=== PATIENT | male | born 1980 | race African-American/Black ===

== ENCOUNTER 2023-08-23 23:33 | Day surgery (SDC) | payer SELFPAY ==
--- NOTE | ~2023-08-23 | FL_ITS ---
EXAMINATION: XR FLUOROSCOPY WITH IMAGES CLINICAL INFORMATION: Right renal calculus. COMPARISON: None available. TECHNIQUE: Fluoroscopy Supervised By: Dr. Domingo Sheth. Fluoroscopy Time: 2.2 seconds. Cumulative Dose: 0.47 mGy. Images: 1. FINDINGS: Intraoperative fluoroscopy and spot films were performed during a procedure in the OR. Single image demonstrates a retrograde wire in the right ureter. Please see Dr. Domingo Sheth's report for complete details. FL/FL guidance in OR IMPRESSION: Intraoperative fluoroscopy and spot films were obtained. Please see Dr. Domingo Sheth's report for complete details.
--- NOTE | ~2023-08-23 | CT_ITS ---
EXAMINATION: CT ABDOMEN AND PELVIS WITHOUT CONTRAST CLINICAL INFORMATION: Right flank pain. COMPARISON: None available. TECHNIQUE: Multidetector volumetric imaging was performed from the superior aspect of the liver through the pubic symphysis. Sagittal and coronal reformatted images were obtained on the technologist's workstation. This CT examination was performed using dose optimization techniques as appropriate, variously including the following: *Automated exposure control *Adjustment of mA and/or kV according to patient size (this includes techniques or standardized protocols for targeted exams where dose is matched to indication/reason for exam; i.e. extremities or head) *Use of iterative reconstruction technique DLP: 637 mGy-cm FINDINGS: LUNG BASES: The visualized lung bases are unremarkable. LIVER, GALLBLADDER, AND BILIARY TREE: The liver is normal in size, shape, and attenuation. No focal hepatic lesion or biliary ductal dilatation is present. The gallbladder is unremarkable with no evidence of radiopaque gallstones, gallbladder wall thickening, or obvious pericholecystic inflammatory changes. PANCREAS: Unremarkable. SPLEEN: Unremarkable. ADRENAL GLANDS: Unremarkable. KIDNEYS AND URETERS: The kidneys are normal in size, shape, and attenuation. There is a 5 mm calculus mid to upper pole right kidney. There is a 1 mm calculus upper pole right kidney. There are a few small hypodensities mid and lower poles of the left kidney measuring up to 1.5 cm most consistent with cysts. There is mild right hydronephrosis and hydroureter extending into the pelvis with a 9 x 4.5 mm calculus projecting into the right aspect of the urinary bladder. BLADDER: Unremarkable. GASTROINTESTINAL TRACT: The small and large bowel are unremarkable. The appendix is not identified. ABDOMINAL WALL: No significant hernia is appreciated. LYMPH NODES: Normal. VASCULAR: There is mild atherosclerotic plaque of the abdominal aorta and iliac vessels.. PELVIC VISCERA: Unremarkable. OSSEOUS STRUCTURES: Unremarkable. CT/CT abdomen pelvis wo IV con IMPRESSION: Mild right hydronephrosis and hydroureter extending into the pelvis with a 9 x 4.5 mm calculus projecting into the right aspect of the urinary bladder likely at the right ureterovesicular junction. Right renal stones. Small left renal cysts. Fleischner guidelines were followed.
[2023-08-23 23:47] VITALS: BP 117/76; PULSE 77; RESP 16; TEMP 36.9; O2SAT 99; BMI 27.0
[2023-08-24] VITALS (10 sets, daily range): BP systolic 122–174; BP diastolic 80–110; PULSE 61–84; RESP 15–18; TEMP 36.3–36.6; O2SAT 97–99
--- NOTE | 2023-08-24 00:44 | ED.ABDPAIN ---
HPI - Abdominal Pain General Chief Complaint: Abdominal Pain Stated Complaint: Unable to urinate/bladder feels [facility] Seen by Provider: 08/24/23 00:34 Source: patient Mode of arrival: ambulatory Limitations: no limitations History of Present Illness HPI narrative: Patient comes to the emergency room complaining of right lower quadrant pain that started approximately 1 hour ago. Patient denies radiation, states it is constant, very painful, sharp. Patient denies any injuries. Patient has history of appendectomy. Denies history of kidney stones. Patient states that earlier today he was unsure if he could empty out his bladder, felt distended. However, patient was able to urinate normal. No hematuria or dysuria. Patient denies nausea vomiting or diarrhea, denies fever or chills. Related Data Allergies Allergy/AdvReac Type Severity Reaction Status Date / Time No Known Allergies Allergy Verified 08/23/23 23:52 Review of Systems Review of Systems Constitutional : No Weight loss, No Fever, No Chills, No Night Sweats, No Fatigue, No Malaise ENT/Mouth : No Hearing loss, No Ear Pain, No Nasal Congestion, No Sinus Pain, No Hoarseness, No sore throat, No Rhinorrhea, No Swallowing Difficulty Eyes: No Eye Pain, No Swelling, No Redness, No Foreign Body, No Discharge, No Vision Changes Cardiovascular : No Chest Pain, No SOB, No Dyspnea on Exertion, No Orthopnea, No Edema, No Palpitations Respiratory : No Cough, No Sputum, No Wheezing, No Smoke Exposure, No Dyspnea Gastrointestinal : No Nausea, No Vomiting, No Diarrhea, No Constipation, complaining of right lower quadrant pain Genitourinary : no irregular bleeding, No Dysuria, No Urinary Frequency, No Hematuria, No Urinary Incontinence, No Urgency, No Flank Pain, No Urinary Flow Changes, No Hesitancy Musculoskeletal : No joint pain, No Myalgias, No Joint Swelling Skin : No Skin Lesions, No rash Neuro : No Weakness, No Numbness, No Paresthesias, No Loss of Consciousness, No Dizziness, No Headache Psych : No Anxiety/Panic, No Depression, No SI/HI/AH/VH, No Social Issues, Heme/Lymph: No Bruising, No Bleeding,No Lymphadenopathy Endocrine : No Polyuria, No Polydipsia, No Temperature Intolerance PMF Past Medical History Surgical History (Updated 08/24/23 @ 00:45 by Lavern Loya MD) History of appendectomy Social History Social History Advance Directives: No Advance Directives Information Provided: Yes Do you have a plan to hurt others: No Plan Physical Exam ED Vital Signs: Vital Signs - 24 hr 08/23/23 23:47 08/24/23 02:48 08/24/23 04:48 Temperature 98.4 F 97.9 F Pulse Rate 77 84 81 Respiratory Rate 16 18 18 Blood Pressure 117/76 122/80 125/81 Pulse Oximetry 99 97 99 Oxygen Delivery Method Room Air Nasal Cannula Room Air BMI result Body Mass Index 27.0 Const Other: Appearance: Alert. Oriented X3. No acute distress. Eyes: Pupils equal, round and reactive to light. ENT: Pharynx normal. Neck: Normal inspection. Neck supple. No lymph nodes noted. No crepitus CVS: Normal heart rate and rhythm. Pulses normal. Normal S1 and S2 Respiratory: No respiratory distress. Breath sounds normal. No Wheezing. No rales Abdomen: Soft , moderate tenderness to palpation in the right lower quadrant, no flank pain, no periumbilical pain. No rebound, no guarding. Skin: Skin warm and dry. Normal skin color. Normal skin turgor. Extremities: No lower extremity edema. No Lacerations. No Rash Neuro: Oriented X 3. No motor deficit. No sensory deficit. Moving all extremities. No slurred speech. CN 2 through 12 grossly intact Psych: calm, cooperative, normal affect Course Course Course Narrative: -patient receiving ketorolac IV and Zofran -all of patient's labs pending -imaging pending Medical Decision Making Medical Decision Making MDM Narrative: My interpretation of CT scan, large right ureteral stone. -my interpretation of labs: White blood cell count 11.2, chemistry within normal limits, urinalysis positive for UTI. -patient given the 1st dose of levofloxacin in the emergency room. -discussed with the patient that this stone is so big that it is unlikely to pass by itself. Patient will follow-up with with Urology. -after medication, patient states that the pain decreased but still fairly uncomfortable. -CT scan shows a 9 mm x 4.5 mm stone in the right ureterovesicular junction -I discussed with the patient that the stone is too big, unlikely to pass by itself. Additionally, patient has a UTI. Pain is not well controlled. -I discussed the patient with Dr. Sheth Differential Diagnosis Differential Diagnoses: The differential diagnosis associated with the presentation includes (Who muscle, SBO, ureterolithiasis) Admission/Observation Consideration of admission/observation: Escalation of care including admission/observation considered (Patient discomfort, admission was considered) Consult Healthcare Provider Management of the patient was discussed with: String Cutter Lab Data MDM Lab Attestation statement: I reviewed the patient's lab results. 08/24/23 01:14 08/24/23 01:14 Labs: Lab Results 08/24/23 08/24/23 Range/Units 01:14 02:46 WBC 11.2 H (4.8-10.8) X10*3/uL RBC 4.91 (4.60-5.80) X10*6/uL Hgb 14.7 (14.0-18.0) g/dl Hct 43.2 (42.0-52.0) % MCV 88.0 (80.0-98.0) fL MCH 29.9 (27.0-33.0) pg MCHC 34.0 (31.0-36.0) g/dl RDW 12.5 (11.0-16.0) % Plt Count 157 L (160-400) X10*3/uL MPV 11.6 (9.4-12.4) fL Immature Gran % (Auto) 0.4 (0.0-0.4) % Neut % (Auto) 83.0 H (45-73) % Lymph % (Auto) 7.7 L (20-40) % [place] % (Auto) 8.1 (2-11) % Eos % (Auto) 0.4 (0-4) % Baso % (Auto) 0.4 (0-2) % Lymph # (Auto) 0.9 L (1.2-4.9) X10*3/uL [place] # (Auto) 0.9 (0.1-1.2) X10*3/uL Eos # (Auto) 0.1 (0.0-0.4) X10*3/uL Baso # (Auto) 0.0 (0.0-0.2) X10*3/uL Abs Immat Gran (auto) 0.05 H (0.00-0.03) X10*3/uL Absolute Neuts (auto) 9.3 H (2.0-8.3) x10*3/uL Absolute Nucleated RBC 0.000 (0.0-0.012) X10*3/uL Nucleated RBC % (auto) 0.0 (0.0-0.2) /100WBC Sodium 141 (135-145) mmol/L Potassium 3.5 (3.3-5.1) mmol/L Chloride 105 (96-108) mmol/L Carbon Dioxide 24 (22-29) mmol/L Anion Gap 16 (12-20) BUN 15 (9-16) mg/dL Creatinine 1.18 (0.5-1.4) mg/dL Estim Creat Clear Calc 81.5 Estimated GFR > 60 Random Glucose 120 H (60-115) mg/dL Calcium 9.4 (8.4-10.2) mg/dL Total Bilirubin 0.6 (0.0-1.0) mg/dL AST 16 (5-37) U/L ALT 17 (0-40) U/L Alkaline Phosphatase 57 (39-117) U/L Total Protein 7.1 (6.5-8.0) g/dL Albumin 4.0 (3.5-5.0) g/dL Lipase 12 (8-78) U/L Urine Color Dark Yellow Urine Appearance Cloudy Urine pH 5.5 (5.0-9.0) Ur Specific [place] >= 1.030 H (1.005-1.025) Urine Protein 30 (1+) H (Neg-Trace) mg/dL Urine Glucose (UA) Negative (Negative) mg/dL Urine Ketones Trace (Negative) mg/dL Urine Blood Large (3+) H (Negative) Urine Nitrite Negative (Negative) Ur Leukocyte Esterase Trace H (Negative) Urine RBC >20 H (0-2) /HPF Urine WBC 11-20 H (0-5) /HPF Ur Squamous Epith Cells 6-10 (0-2) /HPF Urine Bacteria None Seen (None Seen) Hyaline Casts >20 (0-2) /LPF Independent Interpretation I performed an independent interpretation of an: CT Scan Radiology Impression Discussion of test interpretation with radiology: I have reviewed the radiologist's reading. Radiologist Impression: FINDINGS: LUNG BASES: The visualized lung bases are unremarkable. LIVER, GALLBLADDER, AND BILIARY TREE: The liver is normal in size, shape, and attenuation. No focal hepatic lesion or biliary ductal dilatation is present. The gallbladder is unremarkable with no evidence of radiopaque gallstones, gallbladder wall thickening, or obvious pericholecystic inflammatory changes. PANCREAS: Unremarkable. SPLEEN: Unremarkable. ADRENAL GLANDS: Unremarkable. KIDNEYS AND URETERS: The kidneys are normal in size, shape, and attenuation. There is a 5 mm calculus mid to upper pole right kidney. There is a 1 mm calculus upper pole right kidney. There are a few small hypodensities mid and lower poles of the left kidney measuring up to 1.5 cm most consistent with cysts. There is mild right hydronephrosis and hydroureter extending into the pelvis with a 9 x 4.5 mm calculus projecting into the right aspect of the urinary bladder. BLADDER: Unremarkable. GASTROINTESTINAL TRACT: The small and large bowel are unremarkable. The appendix is not identified. ABDOMINAL WALL: No significant hernia is appreciated. LYMPH NODES: Normal. VASCULAR: There is mild atherosclerotic plaque of the abdominal aorta and iliac vessels.. PELVIC VISCERA: Unremarkable. OSSEOUS STRUCTURES: Unremarkable. CT/CT abdomen pelvis wo IV con IMPRESSION: Mild right hydronephrosis and hydroureter extending into the pelvis with a 9 x 4.5 mm calculus projecting into the right aspect of the urinary bladder likely at the right ureterovesicular junction. Right renal stones. Small left renal cysts. Medications Administered Discontinued Medications Generic Name Dose Route Start Last Admin Trade Name Freq PRN Reason Stop Dose Admin Ketorolac Tromethamine 30 mg 08/24/23 00:47 08/24/23 01:15 Ketorolac Tromethamine 30 Mg/Ml Vial IVPUSH 08/24/23 00:48 30 mg ONCE ONE Administration Levofloxacin 750 mg 08/24/23 04:26 08/24/23 04:45 Levofloxacin 750 Mg Tablet PO 08/24/23 04:27 750 mg ONCE ONE Administration Morphine Sulfate 4 mg 08/24/23 04:45 08/24/23 04:49 Morphine Sulfate 4 Mg/Ml Cartridge IVPUSH 08/24/23 04:46 4 mg ONCE ONE Administration Protocol Ondansetron HCl 4 mg 08/24/23 00:47 08/24/23 01:15 Ondansetron Hcl 4 Mg/2 Ml Vial IVPUSH 08/24/23 00:48 4 mg ONCE ONE Administration Critical Care Time Critical Care Time Critical Care Time: Yes Total Critical Care Time: 45 Attestation: I have personally provided critical care time. Time includes review of lab data, radiology results, discussion with consultants, and monitoring for potential decompensation. Intervention performed as documented. Discharge Plan Discharge Clinical Impression: Ureterolithiasis, UTI (urinary tract infection) Patient Disposition: Admitted As Inpatient Print Language: Sinhala
--- OUTSIDE RECORDS SUMMARY | 2023-08-24 01:07 | XMS_ITS | Patient Health Record ---
Author Organization [facility] Address [address] [place] [id number] Care Team Providers Care Sound Designer Name Role Phone JohnGordon Rhodes Primary Care Provider [phone] Reason For Referral No Information Problems Problem Type SNOMED Code ICD Code Onset Dates Problem Status W/U Status Risk Notes Problem Exposure to acute respiratory syndrome coronavirus 2 ([id number]) Contact with and (suspected) exposure to covid-19 (Z20.822) Active confirmed Plan Of Treatment No Information
[2023-08-24] MEDS: Ketorolac Tromethamine 30 MG/ML VIAL IVPUSH (01:15)
[2023-08-24] MEDS: ondansetron HCL 4 MG/2 ML VIAL IVPUSH (01:15)
[2023-08-24 01:23] LABS: Basophils Percent Auto 0.4 % (0-2); Eosinophils Absolute Auto 0.1 X10*3/uL (0.0-0.4); Eosinophils Percent Auto 0.4 % (0-4); Hematocrit 43.2 % (42.0-52.0); Hemoglobin 14.7 g/dl (14.0-18.0); Imm Gran Abs Auto 0.05 X10*3/uL (0.00-0.03); Imm Gran Pct Auto 0.4 % (0.0-0.4); Lymphocytes Absolute Auto 0.9 X10*3/uL (1.2-4.9); Lymphocytes Percent Auto 7.7 % (20-40); MANUAL DIFF FLAG NO; Mean Corpuscular Hemoglobin 29.9 pg (27.0-33.0); Mean Platelet Volume 11.6 fL (9.4-12.4); Monocytes Absolute Auto 0.9 X10*3/uL (0.1-1.2); Monocytes Percent Auto 8.1 % (2-11); Neutrophils Absolute Auto 9.3 x10*3/uL (2.0-8.3); Platelet Count 157 X10*3/uL (160-400); Red Blood Count 4.91 X10*6/uL (4.60-5.80); Red Cell Distribution Width 12.5 % (11.0-16.0); White Blood Count 11.2 X10*3/uL (4.8-10.8)
[2023-08-24 01:36] LABS: Alanine Aminotransferase 17 U/L (0-40); Alkaline Phosphatase 57 U/L (39-117); Anion Gap 16 (12-20); Aspartate Amino Transferase 16 U/L (5-37); Bilirubin Total 0.6 mg/dL (0.0-1.0); Blood Urea Nitrogen 15 mg/dL (9-16); Calcium 9.4 mg/dL (8.4-10.2); Carbon Dioxide 24 mmol/L (22-29); Chloride 105 mmol/L (96-108); Creatinine Clr Calc Pharmacy 81.5; Estimated Glomerular Filt Rate > 60; Glucose Random 120 mg/dL (60-115); Lipase 12 U/L (8-78); Potassium 3.5 mmol/L (3.3-5.1); Sodium 141 mmol/L (135-145); Total Protein 7.1 g/dL (6.5-8.0)
[2023-08-24 02:54] LABS: Appearance Urine Cloudy; Color Urine Dark Yellow; Glucose Urine UA Negative (Negative); Leukocyte Esterase Urine Trace (Negative); Nitrite Urine Negative (Negative); PH 5.5 (5.0-9.0); Specific Gravity - Urine >= 1.030 (1.005-1.025); UMIC TRIGGER UACC YES; Urine Blood Large (3+) (Negative); Urine Ketones Trace mg/dL (Negative); Urine Protein 30 (1+) mg/dL (Neg-Trace)
[2023-08-24 03:21] LABS: Bacteria Urine None Seen (None Seen); Hyaline Casts Urine >20 /LPF (0-2); RBC Urine >20 /HPF (0-2); UACC Culture Trigger YES
[2023-08-24] MEDS: levoFLOXacin 750 MG TABLET PO (04:45)
[2023-08-24] MEDS: Morphine Sulfate 4 MG/ML CARTRIDGE IVPUSH (04:49)
[2023-08-24] MEDS: HYDROmorphone HCl 0.5 MG/0.5 ML SYRINGE IVPUSH (07:51)
--- NOTE | 2023-08-24 08:25 | PHA.MEDREC ---
Pharmacy Consult ? Medication Reconciliation Pharmacy has completed the medication reconciliation.
--- NOTE | 2023-08-24 10:12 | P.CNUR_ITS ---
History of Present Illness Consult details Consult date: 08/24/23 Narrative: cc: Distal right ureteric stone with hydronephrosis and elevated white count Bulmaro is a 42-year-old male Presents with sudden onset pain right lower quadrant. Woke him from sleep. Prior appendectomy No history of kidney stones WBC 11.2, calcium 9.4, creatinine 1.2 UA negative nitrite, positive blood Imaging - CT There is mild right hydronephrosis and hydroureter extending into the pelvis with a 9 x 4.5 mm calculus projecting into the right aspect of the urinary bladder. Relevant singh image printed and provided to patient. Decision regarding right retrograde, ureteroscopy, laser, lithotripsy Review of Systems 2 Constitutional: Constitutional: Reports as per HPI and Reports no additional constitutional complaints Cardiovascular: Cardiovascular: Reports as per HPI and Reports no additional cardiovascular complaints Respiratory: Respiratory: Reports as per HPI and Reports no additional respiratory complaints Gastrointestinal: Gastrointestinal: Reports as per HPI and Reports no additional gastrointestinal complaints Genitourinary: Genitourinary: Reports as per HPI Musculoskeletal: Musculoskeletal: Reports no additional musculoskeletal complaints and Reports as per HPI Neurologic: Reports system reviewed and no additional complaints, except as documented and Reports as per HPI [facility] Surgical History Surgical History (Updated 08/24/23 @ 00:45 by Lavern Loya MD) History of appendectomy Social History Social History Smoked in Last 30 Days: Yes Use of substances other than those prescribed or required for medical reasons: No Advance Directives: No Advance Directives Information Provided: Yes Do you have a plan to hurt others: No Plan Meds Allergies Allergy/AdvReac Type Severity Reaction Status Date / Time No Known Allergies Allergy Verified 08/23/23 23:52 Home Medications ?Medication ?Instructions ?Recorded ?Confirmed ?Last Taken ?Type No Known Home Meds 08/24/23 08/24/23 Unknown History Physical Exam 2 Vital Signs: Vital Signs: Last Vital Signs Temp 97.5 F 08/24/23 09:15 Pulse 61 08/24/23 09:15 Resp 15 08/24/23 09:15 BP 141/92 H 08/24/23 09:15 Pulse Ox 99 08/24/23 09:15 O2 Del Method Room Air 08/24/23 09:15 BMI result Body Mass Index 27.0 Const: General: cooperative, healthy appearing, comfortable and no acute distress Orientation/consciousness: patient oriented x3 HEENT: Face and sinus: Yes normal facial exam Mouth: moist mucous membranes Neck: Neck: Yes normal visual inspection, Yes full ROM and Yes trachea midline Chest: Chest palpation & inspection: normal inspection of the chest Resp: Effort & Inspection: normal respiratory effort, able to speak in complete sentences and no respiratory distress GI: Inspection: Yes normal to inspection Back/Spine/Pelvis: Cervical Spine: normal cervical lordosis Thoracic/Lumbar Spine: thoracic and lumbar spine normal to inspection Skin: General skin exam: no rashes or lesions noted Neuro: General: patient oriented x3, tone normal and moves all extremities Extrem: General: Yes normal to inspection and Yes capillary refill normal Results Labs 08/24/23 01:14 08/24/23 01:14 Labs: Abnormal lab results 08/24/23 08/24/23 Range/Units 01:14 02:46 WBC 11.2 H (4.8-10.8) X10*3/uL Plt Count 157 L (160-400) X10*3/uL Neut % (Auto) 83.0 H (45-73) % Lymph % (Auto) 7.7 L (20-40) % Lymph # (Auto) 0.9 L (1.2-4.9) X10*3/uL Abs Immat Gran (auto) 0.05 H (0.00-0.03) X10*3/uL Absolute Neuts (auto) 9.3 H (2.0-8.3) x10*3/uL Random Glucose 120 H (60-115) mg/dL Ur Specific [place] >= 1.030 H (1.005-1.025) Urine Protein 30 (1+) H (Neg-Trace) mg/dL Urine Blood Large (3+) H (Negative) Ur Leukocyte Esterase Trace H (Negative) Urine RBC >20 H (0-2) /HPF Urine WBC 11-20 H (0-5) /HPF Short CBC 08/24/23 Range/Units 01:14 WBC 11.2 H (4.8-10.8) X10*3/uL Hgb 14.7 (14.0-18.0) g/dl Hct 43.2 (42.0-52.0) % Plt Count 157 L (160-400) X10*3/uL BMP 05/18/24 01:14 Sodium 141 Potassium 3.5 Chloride 105 Carbon Dioxide 24 BUN 15 Creatinine 1.18 Calcium 9.4 Liver Function 08/24/23 Range/Units 01:14 Total Bilirubin 0.6 (0.0-1.0) mg/dL AST 16 (5-37) U/L ALT 17 (0-40) U/L Alkaline Phosphatase 57 (39-117) U/L Albumin 4.0 (3.5-5.0) g/dL Urine 08/24/23 Range/Units 02:46 Urine Color Dark Yellow Urine Appearance Cloudy Urine pH 5.5 (5.0-9.0) Ur Specific [place] >= 1.030 H (1.005-1.025) Urine Protein 30 (1+) H (Neg-Trace) mg/dL Urine Glucose (UA) Negative (Negative) mg/dL All other labs normal. Assessment and Plan (1) Ureterolithiasis: Status: Acute (2) Hydronephrosis: Status: Acute Plan Ureteroscopy We discussed the nature of the decision and reasonable alternatives for performing ureteroscopy. Options such as medical therapy were discussed. Interventions include chemical dissolution, ESWL, ureteroscopy with laser lithotripsy and stent placement, PCNL. The relative uncertainties and benefits related to each alternate procedure were adequately discussed. General surgical risks including, but not limited to - pain, bleeding, infection, myocardial infarction, pulmonary embolus, deep vein thrombosis and cerebrovascular accident which may result in further hospitalization were discussed. Full disclosure of the procedure as well as all major risks, benefits and complications were discussed including but not limited to damage to the urethra, bladder and kidney infection, damage to the ureter, stent migration or malposition, scarring to the renal pelvis, remnant stone fragments, subsequent stone passage with need for secondary procedures. The overall secondary procedure rate is approximately 10-15%. The overall clearance rate is approximately 90-95%. Success of the procedure in the short-term does not necessarily guarantee that long-term success will be maintained. Suitable follow up will need to be maintained. The patient showed understanding of discussion and wishes to proceed with - cystoscopy, retrograde, ureteroscopy, possible lithotripsy/stone basketing and stent on the right side Procedures Date of Service Date of Service: 08/24/23
--- NOTE | 2023-08-24 12:06 | HO.ANESPROP2 ---
[facility] Active Problems Active Problems: All Active Problems Hydronephrosis (Acute) UTI (urinary tract infection) (Acute) Ureterolithiasis (Acute) Past Medical History Functional capacity: independent ambulation Surgical History Surgical History History of appendectomy History of Problems with Anesthesia: No Social History Social History Smoked in Last 30 Days: Yes Use of substances other than those prescribed or required for medical reasons: No Advance Directives: No Advance Directives Information Provided: Yes Do you have a plan to hurt others: No Plan Meds Allergies Allergy/AdvReac Type Severity Reaction Status Date / Time No Known Allergies Allergy Verified 08/23/23 23:52 Home Medications ?Medication ?Instructions ?Recorded ?Confirmed ?Last Taken ?Type No Known Home Meds 08/24/23 08/24/23 Unknown History Exam Height,Weight and Vital Signs: Height 5 ft 9 in Weight 82.8 kg Last Vital Signs Temp 97.5 F 08/24/23 09:15 Pulse 61 08/24/23 09:15 Resp 15 08/24/23 09:15 BP 141/92 H 08/24/23 09:15 Pulse Ox 99 08/24/23 09:15 O2 Del Method Room Air 08/24/23 09:15 Pertinent Lab Results Pertinent Lab Results: Laboratory Tests 08/24/23 08/24/23 01:14 02:46 WBC 11.2 H RBC 4.91 Hgb 14.7 Hct 43.2 MCV 88.0 MCH 29.9 MCHC 34.0 RDW 12.5 Plt Count 157 L MPV 11.6 Immature Gran % (Auto) 0.4 Neut % (Auto) 83.0 H Lymph % (Auto) 7.7 L [place] % (Auto) 8.1 Eos % (Auto) 0.4 Baso % (Auto) 0.4 Lymph # (Auto) 0.9 L [place] # (Auto) 0.9 Eos # (Auto) 0.1 Baso # (Auto) 0.0 Abs Immat Gran (auto) 0.05 H Absolute Neuts (auto) 9.3 H Absolute Nucleated RBC 0.000 Nucleated RBC % (auto) 0.0 Sodium 141 Potassium 3.5 Chloride 105 Carbon Dioxide 24 Anion Gap 16 BUN 15 Creatinine 1.18 Estim Creat Clear Calc 81.5 Estimated GFR > 60 Random Glucose 120 H Calcium 9.4 Total Bilirubin 0.6 AST 16 ALT 17 Alkaline Phosphatase 57 Total Protein 7.1 Albumin 4.0 Lipase 12 Urine Color Dark Yellow Urine Appearance Cloudy Urine pH 5.5 Ur Specific [place] >= 1.030 H Urine Protein 30 (1+) H Urine Glucose (UA) Negative Urine Ketones Trace Urine Blood Large (3+) H Urine Nitrite Negative Ur Leukocyte Esterase Trace H Urine RBC >20 H Urine WBC 11-20 H Ur Squamous Epith Cells 6-10 Urine Bacteria None Seen Hyaline Casts >20 Airway Mallampati Class: II TM Dist: >3cm Neck ROM: Full Heart: RRR Lungs: CTA Assessment and Plan Assessment Anesthesia Assessment: Anesthesia Plan Discussed and Smoking Cess. Discussed Final Anesthetic Review History of Problems with Anesthesia: No Anesthetic Plan Anesthetic Plan: GA Disposition: Standard PACU
--- NOTE | 2023-08-24 12:25 | MHC.SHP ---
Pre-Procedural Eval Section A - 24 Hr Update-Section A only Date of Service: 08/24/23 The patient is an INPATIENT: Yes Changes since office visit: No Cold of Flu in the past 2 weeks, No New Medical Problems, No Changes in Medication and No Patient answered all questions The patient has been examined within 24 hours of the surgical procedure. The History & Physical has been completed within 30 days and I have reviewed it.: Yes Section B - Complete if H&P > 30 days Chief Complaint: Unable to urinate/bladder feels full Allergies: Allergies Allergy/AdvReac Type Severity Reaction Status Date / Time No Known Allergies Allergy Verified 08/23/23 23:52 Plan Diagnosis/Plan: Unchanged (Cystoscopy, right retrograde, right ureteroscopy with laser lithotripsy) I have reviewed the history and physical and performed a pertinent physical examination on my patient. No changes have occurred unless specified. Time Spent With Patient Time: Total time managing care of this patient today ____ minutes.
--- NOTE | 2023-08-24 13:06 | W.PM.OPN ---
Operative Note Operative Note Date of Service: 08/24/23 Narrative: PreOperative Diagnosis: Distal right ureteric stone with hydronephrosis Post Operative Diagnosis: Distal right ureteric stone with hydronephrosis Procedure: - cystoscopy, right retrograde - right ureteroscopy, laser lithotripsy, stone basketing - right stent placement Surgeon: Dr Domingo Sheth Anesthesia: General Indications for procedure: Distal right ureteric stone on imaging with right flank pain Procedure: After informed consent was verified the patient was brought to the operating room and placed in a supine position. Anesthesia was administered per protocol. The patient was placed in a modified dorsal lithotomy position and prepped and draped in a sterile fashion. Safety pause time-out and side of surgery were confirmed. Images were available for review. Antibiotic administration confirmed. A 22 Tu[place]uan cystoscope was inserted per urethra. The urethra was without aabnormality. The bladder was normal in its entirety. Both ureteric orifices were seen in normal position - stone was on right ureter. Right ureter using 360 nm laser fiber the stone that was protruding was broken into small pieces. The right ureteric orifice was cannulated and a retrograde examination was performed. Stones still seen in base area . A Sensor guidewire was placed up to the level of the renal pelvis under fluoroscopy. The rigid cystoscope was removed. The semi rigid ureteral scope was placed alongside the Sensor guidewire. Using a 365 micro holmium laser fiber the stone was broken into small pieces using a combination of hammer and dusting techiques. Once the fragments were removed a decision was made to place a ureteric stent. Based on the height of the patient a 6 Fr x 28 stent was used. The string was removed from the stent prior to placement The rigid cystoscope was backloaded over the wire and advanced into the bladder. A 6 Tu[place]uan by 28 cm double-J stent was placed into the renal pelvis and bladder under a combination of fluoroscopy and direct visualization. The bladder was emptied. The patient tolerated the procedure well and was extubated in the operating room. They were transferred in stable condition to the recovery area. Pathology: stones Drains: Double J stent as described above
[2023-08-24] MEDS: Phenazopyridine HCL 100 MG TABLET PO (13:32)
--- NOTE | 2023-08-24 13:37 | HO.POSTANES ---
Post Anesthesia Evaluation Post Anesthesia Evaluation Date of Service: 08/24/23 Vital Signs: Vital Signs Temp Pulse Resp BP Pulse Ox O2 Del Method 08/24/23 13:30 66 16 160/100 H 99 Room Air 08/24/23 13:25 67 16 167/110 H 99 Room Air 08/24/23 13:20 66 16 170/103 H 98 Room Air 08/24/23 13:19 97.8 F 67 16 174/107 H 98 Room Air 08/24/23 12:28 97.5 F 61 15 141/92 H 99 Room Air 08/24/23 09:15 97.5 F 61 15 141/92 H 99 Room Air 08/24/23 07:53 77 17 136/92 H 99 08/24/23 04:48 81 18 125/81 99 Room Air 08/24/23 02:48 97.9 F 84 18 122/80 97 Nasal Cannula Anesthesia: General LMA Mental Status: Awake Pain Control: Satisfactory Nausea/Vomiting: None Hydration: Adequate Anesthesia-Related Issues: No Anes. Related Issues
[2023-09-18 18:58] LABS: Stone Source RIGHT KIDNEY STONE
== END 2023-08-24 13:50 | disposition home or self-care (01) ==
LOC: HO.ED 08-24 04:50 → HO.SSS 08-24 12:15
PROVIDERS: Emergency Provider Emergency Medicine; Visit Provider Urology
PROC: (CPT 52356; principal; 2023-08-24 12:00)
DX: N20.1 Calculus of ureter (principal); N13.30 Unspecified hydronephrosis; N28.1 Cyst of kidney, acquired; N39.0 Urinary tract infection, site not specified; Z90.49 Acquired absence of other specified parts of digestive tract
CPT/HCPCS: 52356; 36415; 74176; 80053; 81001; 82365; 83690; 85025; 87086; 88300; 96374; 96375; 99284; 99285; C1758; C1769; C2617; J1100; J1170; J1885; J1956; J2250; J2270; J2405; J2704; J3010; Q9967

== ENCOUNTER → 2023-08-24 01:05 | Outpatient (BNV) | payer SELFPAY | PROVIDERS: Emergency Provider Emergency Medicine; Visit Provider Urology | DX: N20.1 Calculus of ureter (principal); N13.30 Unspecified hydronephrosis | CPT/HCPCS: 52356; 74420; 99284 ==

== ENCOUNTER 2023-09-09 16:28 | Emergency (ER) | payer OTHER, SELFPAY ==
[2023-09-09 16:45] VITALS: BP 155/102; PULSE 97; RESP 16; TEMP 36.6; O2SAT 98; BMI 27.1
== END 2023-09-09 22:04 | disposition left against medical advice (07) ==
LOC: HO.ED 21:52
PROVIDERS: Emergency Provider Emergency Medicine
DX: R10.2 Pelvic and perineal pain (principal); R31.9 Hematuria, unspecified; Z96.0 Presence of urogenital implants; Z87.442 Personal history of urinary calculi; Z53.21 Procedure and treatment not carried out due to patient leaving prior to being seen by health care provider
CPT/HCPCS: 99281

== ENCOUNTER 2023-09-10 08:52 | Outpatient (AMB) | payer OTHER, SELFPAY ==
--- NOTE | 2023-09-10 10:07 | A.OFFVIS_ITS ---
Intake Visit Reasons: stent removal Intake Note: Patient is Present for Cystoscopy Urology Med: Tamuslosin Antibiotic Allergy:None Blood Thinner: None URO- G Disposable Cystoscope lot: [id number] exp:09/06/26 Allergies No Known Allergies Allergy (Verified 09/09/23 16:56) HPI Comments Details: Chapin is a pleasant male. He is seen for the following urologic conditions - nephrolithiasis Here for stent removal Nephrolithiasis Seen in hospital with stent placement Left side distal stone Here for stent removal Results pending [facility] Surgical History History of appendectomy Review of Systems Const Denies chills and Denies fever(s) Card Reports no additional complaints and Denies syncope Resp Denies cough GI Denies abdominal pain and Denies heartburn Reports as per HPI and Denies change in libido Neuro Denies syncope Psych Denies change in libido Endo Denies change in libido Physical Exam Const General: cooperative, healthy appearing, comfortable and no acute distress Orientation/consciousness: patient oriented x3 HEENT Face and sinus: Yes normal facial exam Mouth: moist mucous membranes Neck Neck: Yes normal visual inspection, Yes full ROM and Yes trachea midline Chest Chest palpation & inspection: normal inspection of the chest Resp Effort & Inspection: normal respiratory effort, able to speak in complete sentences and no respiratory distress GI Inspection: Yes normal to inspection Back/Spine/Pelvis Cervical Spine: normal cervical lordosis Thoracic/Lumbar Spine: thoracic and lumbar spine normal to inspection Skin General skin exam: no rashes or lesions noted Neuro General: patient oriented x3, gait normal, tone normal and moves all extremities Extrem General: Yes normal to inspection and Yes capillary refill normal Office Procedures Cystoscopy Consent Discussed risk and benefit or proposed procedure with the patient. Information consent for procedure given to the patient. Discussed technical aspects, risks, benefits and alternatives in full. Addressed all of the patient's questions and concerns regarding the procedure. The patient demonstrated knowledge and understanding. They wish to proceed with this procedure. Preparation The patient was prepped in the usual manner. A surveillance inspector was present and in the room. Genitalia was prepped with betadine solution in a sterile manner. Lidocaine Jelly 2% was placed into the urethra and 16Fr flexible Olympus cystoscope was inserted into the meatus after adequate lubrication. Procedure A well lubricated 16 Irish cystoscope was placed No abnormality noted of urethra during placement Indwelling stent seen within bladder emerging from left ureteric orifices The stent was grasped with a 3 prong grasper and removed without difficulty The patient tolerated the procedure well [id number] with stent removal Procedure code (CPT) selection complete Office Meds lidocaine HCl 2 % mucosal jelly in applicator Performing Provider: Domingo Sheth MD Performing Location: [facility] Administered by: ENRIQUE Rowe on 09/10/23 10:23 Dose Route Admin Location Dispensed Lot Number Expiration Date ND [employer] 10 mL intra-urethral 10 mL nitrofurantoin monohydrate/macrocrystals 100 mg capsule Performing Provider: Domingo Sheth MD Performing Location: [facility] Administered by: ENRIQUE Rowe on 09/10/23 10:23 Dose Route Admin Location Dispensed Lot Number Expiration Date NDC [employer] 100 mg PO 1 cap naproxen 500 mg tablet Performing Provider: Domingo Sheth MD Performing Location: [facility] Administered by: ENRIQUE Rowe on 09/10/23 10:23 Dose Route Admin Location Dispensed Lot Number Expiration Date NDC [employer] 500 mg PO 1 tab Comments: Medications was administered by Dr Domingo Sheth MD Results AMB Urinalysis, Automated UA Leukoctes 125 Hitesh/uL Last Edit by ENRIQUE Rowe on 09/10/23 10:24 UA Nitrite Positive Last Edit by ENRIQUE Rowe on 09/10/23 10:24 UA Urobilinogen 1 mg/dL Last Edit by ENRIQUE Rowe on 09/10/23 10:24 UA Protein 300 mg/dL Last Edit by ENRIQUE Rowe on 09/10/23 10:24 UA pH 5.5 Last Edit by ENRIQUE Rowe on 09/10/23 10:24 UA Blood 200 Rony/uL Last Edit by ENRIQUE Rowe on 09/10/23 10:24 UA Specific [place] 1.030 Last Edit by ENRIQUE Rowe on 09/10/23 10: 24 UA Ketone Negative Last Edit by ENRIQUE Rowe on 09/10/23 10:24 UA Bilirubin 0 mg/dL Last Edit by ENRIQUE Rowe on 09/10/23 10:24 UA Glucose 0 mg/dL Last Edit by ENRIQUE Rowe on 09/10/23 10:24 Results Reviewed Results Reviewed: Laboratory Last Values Urine pH (Auto) 5.5 09/10/23 10:22 Specific [place] (Auto) 1.030 09/10/23 10:22 Urine Protein (Auto) 300 mg/dL 09/10/23 10:22 Glucose (UA)(Auto) 0 mg/dL 09/10/23 10:22 Urine Ketones (Auto) Negative 09/10/23 10:22 Urine Blood (Auto) 200 Rony/uL 09/10/23 10:22 Urine Nitrite (Auto) Positive 09/10/23 10:22 Urine Bilirubin (Auto) 0 mg/dL 09/10/23 10:22 Urine Urobilinogen (Auto) 1 mg/dL 09/10/23 10:22 Leukocyte Esterase (Auto) 125 Hitesh/uL 09/10/23 10:22 Assessment & Plan Assessment & Plan (1) Nephrolithiasis: Code(s): N20.0 - Calculus of kidney Category: Medical Plan P.r.n. follow-up Orders: Orders AMB Cystoscopy Today Z87.442 - Personal history of urinary calculi AMB Urinalysis Automated Today Z13.9 - Encounter for screening, unspecified Patient Instructions: Imaging studies, laboratory and physical exam results were discussed and reviewed in detail. No major barriers to patient understanding were identified. An opportunity to ask questions regarding the treatment plan was provided. All questions were answered. The patient expressed understanding and agreement with the above treatment plan. The patient is aware they should contact our office by phone for worsening of their current condition or the appearance of new urologic symptoms. Compliance is encouraged with any medications and followup testing that is ordered. It is a privilege to participate in the urologic care of your patient. If you have any questions or concerns regarding treatment for the above conditions, or other urologic issues, please do not hesitate to contact me. The office telephone contact is [phone]. This note is constructed using voice recognition software. While every effort has been made to ensure accuracy terminal operations supervisor errors may have been included. Yours sincerely, Dr Domingo Sheth MD, ERN[facility] - Urology Providers of Expert, Compassionate Care for the Genitourinary System Coding Level of Care Code Procedure Only Diagnoses Nephrolithiasis N20.0 CPT Codes Cystoscopy - CPT: 71186-[id number] with stent removal ([id number])
== END 2023-09-10 11:03 | disposition home or self-care (01) ==
PROVIDERS: Visit Provider Urology
DX: Z96.0 Presence of urogenital implants (principal); Z87.442 Personal history of urinary calculi; Z13.9 Encounter for screening, unspecified
CPT/HCPCS: 52310

== ENCOUNTER → 2023-09-10 08:52 | Outpatient (BNVA) | payer OTHER, SELFPAY | PROVIDERS: Visit Provider Urology | DX: Z46.6 Encounter for fitting and adjustment of urinary device (principal); Z87.442 Personal history of urinary calculi | CPT/HCPCS: 52310; 81003 ==